=== PATIENT | male | born 1945 | race Caucasian/White ===

== ENCOUNTER 2017-05-06 21:22 | Emergency (ER) | payer MEDICARE, OTHER ==
[~2017-05-06] VITALS: Ht 180.3 cm; Wt 78.0 kg
[2017-05-06 21:24] VITALS: BP 155/69; PULSE 72; TEMP 99.1; O2SAT 96
[2017-05-06] MEDS ORDERED: HUMALOG SQ (21:29)
[2017-05-06] MEDS ORDERED: ASPI81CH CHEW (21:29)
[2017-05-06] MEDS ORDERED: SIMV20TA PO (21:29)
[2017-05-06] MEDS ORDERED: ASPI325T PO (21:29)
[2017-05-06 21:34] VITALS: RESP 20
--- NOTE | 2017-05-06 21:48 | PD ---
HPI Chief Complaint: Skin Problem Time Seen by Provider: 21:45 Travel History International Travel<30 days: No Contact w/Intl Traveler<30days: No Traveled to known affect area: No History of Present Illness HPI 71-year-old white male presents to emergency Department with complaints of a rash on his chest which she was concerned regarding possible recurrent shingles. He states that the rash has been pruritic and localized underneath his breast. On the right and left sides of his chest. He cannot recall any causative agent otherwise. He has not been sick recently. He denies any fever or chills. No pain. He denies any blistering rash. PFSH Past Medical History Narrative Medical IDDM Hypertension: Yes Medical other: Yes Immunizations Current: Yes Tetanus Vaccination: < 5 Years Influenza Vaccination: Yes Past Surgical History Narrative Surgical Right elbow tendon release, cervical discectomy and fusion, right patellar tendon repair Cardiac Surgery: Yes Eye Surgery: Yes Insulin Pump: Yes Other Surgery: Yes Social History Alcohol Use: Yes Tobacco Use: No Substance Use: No Allergies-Medications (Allergen,Severity, Reaction): Coded Allergies: No Known Allergies (Unverified , 05/06/17) Reported Meds & Prescriptions Reported Meds & Active Scripts Active Reported Aspirin 325 Mg Tab 325 Mg PO DAILY Aspirin 81 Mg Chew 324 Mg CHEW DAILY Simvastatin 20 Mg Tab 20 Mg PO DAILY Humalog Inj (Insulin Human Lispro) 1,000 Unit/10 Ml Vial 5-25 Units SQ ACHS Max dose at bedtime:( )units; sugars < 70,(0)units; sugars 150-199,(5)units; sugars 200-249,(10)units; sugars 250-299,(15)units; sugars 300-349,(20)units; sugars more than 349,(25)units. Review of Systems Except as stated in HPI: all other systems reviewed are Neg Physical Exam Narrative GENERAL: Well-developed, well-nourished in no acute distress. Nontoxic appearing. HEAD: Normocephalic, atraumatic. EYES: Pupils equal round and reactive. Extraocular motions intact. No scleral icterus. No injection or drainage. ENT: TMs clear without erythema. The external auditory canals clear. Nose: clear . Posterior pharynx is pink and moist. No tonsillar edema or exudate. Uvula midline. Airway patent. NECK: Trachea midline.Supple, nontender, moves head freely. No central bony tenderness or spasm. CARDIOVASCULAR: Regular rate and rhythm without murmurs, gallops, or rubs. RESPIRATORY: Clear to auscultation. Breath sounds equal bilaterally. No wheezes , rales, or rhonchi. GASTROINTESTINAL: Abdomen soft, non-tender, nondistended. No hepato-splenomegaly , or palpable masses. No guarding. EXTREMITIES: No clubbing, cyanosis, or edema. No joint tenderness, effusion, or edema noted. BACK: Nontender without deformity or crepitance. No flank tenderness. Skin: Patient has some mild erythema to the anterior chest underneath the pectoral region. There is no Lizbeth petal type rash consistent with single. There is an area of interest on both right and left chest. Data Data Last Documented VS Vital Signs Date Time Temp Pulse Resp B/P Pulse Ox O2 Delivery O2 Flow Rate FiO2 05/06/17 21:34 20 05/06/17 21:24 99.1 72 155/69 96 [facility] Medical Decision Making Medical Screen Exam Complete: Yes Emergency Medical Condition: Yes Medical Record Reviewed: Yes Differential Diagnosis MDM: High Differential diagnoses: Abscess, folliculitis, cellulitis, lymphangitis, abrasion, contact dermatitis, shingles Narrative Course This is not shingles. This is contact dermatitis Diagnosis Primary Impression: Contact dermatitis Patient Instructions: General Instructions Additional Instructions: Rest. Keep clean and dry. Use topical Benadryl and 1% hydrocortisone cream. Follow-up with medical doctor in one week. Return to the ER for any problems. Med/Other Pt SpecificInfo: No Meds Exist/No RX given, Wound Care Disposition: 01 DISCHARGE HOME Condition: Stable Dmitry Haile May 06, 2017 21:48
== END 2017-05-06 22:09 | disposition home or self-care (01) ==
LOC: NEPK 21:22
DX: L25.9 Unspecified contact dermatitis, unspecified cause (principal); E11.9 Type 2 diabetes mellitus without complications; I10 Essential (primary) hypertension; Z79.4 Long term (current) use of insulin; Z79.899 Other long term (current) drug therapy; Z79.82 Long term (current) use of aspirin
CPT/HCPCS: 99282

== ENCOUNTER 2017-05-27 15:01 | Emergency (ER) | payer MEDICARE, OTHER ==
[~2017-05-27] VITALS: Ht 180.3 cm; Wt 93.0 kg
[~2017-05-27 15:01] MED LIST: ASPI325T PO; ASPI81CH CHEW; HUMALOG SQ; SIMV20TA PO
[2017-05-27 15:46] VITALS: BP 141/78; PULSE 78; RESP 15; TEMP 98; O2SAT 99
--- NOTE | 2017-05-27 18:15 | PD ---
HPI Chief Complaint: Fall Time Seen by Provider: 17:56 Travel History International Travel<30 days: No Contact w/Intl Traveler<30days: No Traveled to known affect area: No History of Present Illness HPI 71yo M with PMH of type 1 DM with insulin pump here with right femur ecchymoses and pain s/p fall from standing position today. Pt states he was walking on a plank [place] the [place] at 2pm today and the plank flipped and he fell from standing height and hit his left leg on a statue. Denies any head trauma, LOC, chest pain, sob, dizziness, n/v, abdominal pain, focal weakness or numbness. Denies any anticoagulation. Does not remember last tetanus. PFSH Past Medical History Diabetes: Yes Hypertension: Yes Immunizations Current: Yes Past Surgical History Cardiac Surgery: Yes Eye Surgery: Yes Insulin Pump: Yes Other Surgery: Yes Social History Alcohol Use: Yes Tobacco Use: No Substance Use: No Allergies-Medications (Allergen,Severity, Reaction): Coded Allergies: No Known Allergies (Unverified , 05/27/17) Reported Meds & Prescriptions Reported Meds & Active Scripts Active Reported Aspirin Children's (Aspirin) 81 Mg Chew 81 Mg CHEW DAILY Simvastatin 20 Mg Tab 20 Mg PO DAILY Humalog Inj (Insulin Human Lispro) 1,000 Unit/10 Ml Vial 5-25 Units SQ ACHS Max dose at bedtime:( )units; sugars < 70,(0)units; sugars 150-199,(5)units; sugars 200-249,(10)units; sugars 250-299,(15)units; sugars 300-349,(20)units; sugars more than 349,(25)units. Review of Systems Except as stated in HPI: all other systems reviewed are Neg Physical Exam Narrative GENERAL: 71yo M not in distress. SKIN: Focused skin assessment warm/dry. HEAD: Atraumatic. Normocephalic. EYES: Pupils equal and round. 3mm bilaterally. EOMI. No scleral icterus. No injection or drainage. ENT: No nasal bleeding or discharge. Mucous membranes pink and moist. NECK: Trachea midline. No JVD. CARDIOVASCULAR: Regular rate and rhythm. No murmur appreciated. RESPIRATORY: No accessory muscle use. Clear to auscultation. Breath sounds equal bilaterally. GASTROINTESTINAL: Abdomen soft, non-tender, nondistended. MUSCULOSKELETAL: +9cm by 6cm ecchymoses right lateral thigh ttp. Compartments soft. FROM right hip. Small abrasion right knee. FROM in right knee. Sensation intact. Distal pulses intact. NEUROLOGICAL: Awake and alert. No obvious cranial nerve deficits. Motor grossly within normal limits. Normal speech. PSYCHIATRIC: Appropriate mood and affect; insight and judgment normal. Data Data Last Documented VS Vital Signs Date Time Temp Pulse Resp B/P Pulse Ox O2 Delivery O2 Flow Rate FiO2 05/27/17 18:00 Room Air 05/27/17 15:46 98.0 78 15 141/78 99 Orders Femur (Ap & Lat/2vws) (05/27/17 ) Tetanus/Diphtheria Tox Adult (Tetanus/Di (05/27/17 18:30) Acetaminophen (Tylenol) (05/27/17 18:30) Ibuprofen (Motrin) (05/27/17 19:00) MDM Medical Decision Making Medical Screen Exam Complete: Yes Emergency Medical Condition: Yes Interpretation(s) Last Impressions Femur X-Ray 05/27/17 0000 Signed Impressions: Service Date/Time: Saturday, May 27, 2017 18:39 - CONCLUSION: No acute disease. Ed Brennan MD Differential Diagnosis Fracture vs. contusion vs. hematoma Narrative Course 71yo M with ecchymoses in lateral right thigh after mechanical fall today. No head trauma. No other injuries. Pt able to ambulate after the fall. Pt given ice for swelling as well as ibuprofen which helped with the pain. Xray right femur: No acute disease. Right thigh compartments soft. No open wounds. Return precautions given. Vital signs stable. Diagnosis Primary Impression: Fall Qualified Code: W19.XXXA - Fall, initial encounter Patient Instructions: General Instructions Departure Forms: Tests/Procedures Additional Instructions: Please follow up with your PMD in 3-7 days. Return to the ED immediately if you have worsening pain or any other concerning symptoms. Med/Other Pt SpecificInfo: Prescription(s) given Scripts Ibuprofen 400 Mg [id number] Mg PO Q8H PRN (PAIN SCALE 1 TO 4) #20 TAB Ref 0 Prov:VasquesAngela charles 05/27/17 Disposition: 01 DISCHARGE HOME Condition: Stable Angela Vasques DO May 27, 2017 18:15
[2017-05-27] MEDS ORDERED: TETANUS/DIPHTHERIA TOXOID ADULT 0.5 ML VIAL IM ONE (18:30)
[2017-05-27] MEDS ORDERED: ACETAMINOPHEN 325 MG TAB PO ONE (18:30)
--- NOTE | 2017-05-27 18:41 | RADRPT ---
EXAM DATE/TIME: 05/27/2017 18:39 [facility] COMPARISON: No previous studies available for comparison. INDICATIONS : Fall, complains of right femur pain. MEDICAL HISTORY : Diabetes mellitus type II. SURGICAL HISTORY : Pain pump ENCOUNTER: Initial ACUITY: 1 day PAIN SCORE: 5/10 LOCATION: Right fenur FINDINGS: Two view examination of the right femur demonstrates no evidence of fracture or dislocation. Bony mi neralization is normal. The soft tissue structures are intact. Remote fracture deformity of the [place] lla multiple loose bodies inferiorly and a metallic anchor noted the patellar region. CONCLUSION: No acute disease. Ed Brennan MD on May 27, 2017 at 18:39 Board Certified Radiologist. This report was verified electronically.
[2017-05-27] MEDS ORDERED: IBUPROFEN 400 MG TAB PO ONE (19:00)
[2017-05-27] MEDS ORDERED: ASPI81CH7 CHEW (19:15)
[2017-05-27] MEDS ORDERED: IBUP400T20 PO (19:34)
== END 2017-05-27 19:48 | disposition home or self-care (01) ==
LOC: NEPD 15:01
DX: S80.12XA Contusion of left lower leg, initial encounter (principal); W19.XXXA Unspecified fall, initial encounter; I10 Essential (primary) hypertension; Z79.4 Long term (current) use of insulin; E10.9 Type 1 diabetes mellitus without complications; Z96.41 Presence of insulin pump (external) (internal)
CPT/HCPCS: 73552; 90471; 90714

== ENCOUNTER → 2017-11-11 | Outpatient (CLI) | payer MEDICARE, OTHER ==
[~2017-11-11] MED LIST changes: -ASPI325T PO; -ASPI81CH CHEW; +ASPI81CH7 CHEW; +IBUP1TAB5 PO
--- NOTE | 2017-11-11 23:21 | EKG ---
Date Performed: 11/11/2017 Time Performed: 10:18:49 PTAGE: 71 years EKG: Sinus rhythm WITH SINUS ARRHYTHMIA NORMAL ECG NO PREVIOUS TRACING DOCTOR: Juan David Bacon Interpretating Date/Time 11/11/2017 23:20:15
== END ==
LOC: HCAV 10:03
DX: R94.31 Abnormal electrocardiogram [ECG] [EKG] (principal); I10 Essential (primary) hypertension
CPT/HCPCS: 93005